=== PATIENT | male | born 1975 | race Two or more races ===

== ENCOUNTER 2016-11-08 09:21 | Emergency (ER) | payer OTHER ==
[2016-11-08] MEDS ORDERED: IBUPROFEN 200 MG TABLET ONE ×2 (10:59→11:00)
== END 2016-11-08 11:13 | disposition home or self-care (01) ==
LOC: ED 09:21
DX: J02.0 Streptococcal pharyngitis (principal)
CPT/HCPCS: 87880; 99283 ×2; A9270 ×2